=== PATIENT | female | born 1990 | race Caucasian/White ===

== ENCOUNTER → 2021-10-12 | Outpatient (CLI) | payer BC, OTHER ==
[~2021-10-12] MED LIST: YAZ BIRTH CONTROL; [UNRECOGNIZED DRUG - OTHER]
--- NOTE | 2021-10-12 14:07 | Diagnostic Imaging Report ---
INDICATION: Assessment during normal screening TECHNIQUE: Multiple real-time grayscale images were obtained over the gravid uterus. CORRELATION: None FINDINGS: Single viable intrauterine currently in a breech presentation. Amount of amniotic fluid is normal. Placenta anterior and without evidence for previa. Visualized anatomical structures including the kidneys, bladder, stomach, intracranial structures, four-chamber heart, three-vessel cord and insertion site, spine and extremities appearing unremarkable. Maternal adnexa demonstrates a cervical length at 5.1 cm. Maternal ovaries not visualized. Biometrical measurements are as follows: Biparietal 4.68 cm, age 20 weeks 2 days. Head circumference 17.98 cm, age 20 weeks 3 days. Abdominal circumference 15.16 cm, age 20 weeks 3 days. Femur length 3.27 cm, age 20 weeks 2 days. Sonographic estimate age: 20 weeks 3 days. Sonographic estimated date of delivery: 02/26/2022. Estimated Weight: 345 gm (+/- 51 gm). LMP percentile: 79%. heart rate: 142 beats per minute. number: 1 of 1. IMPRESSION: 1. Single viable intrauterine , currently in a breech presentation. 2. Sonographic estimated age 20 weeks 3 days, with an estimated date of delivery 02/26/2022. 3. No sonographic abnormalities demonstrated at this time. Dictated by: Dictated on workstation # [id number]
== END ==
LOC: RAD 12:08
PROVIDERS: ATTEND Obstetrics & Gynecology
DX: Z36.9 Encounter for antenatal screening, unspecified (principal)
CPT/HCPCS: 76805